=== PATIENT | male | born 1970 | race Hispanic/Latino ===

== ENCOUNTER 2021-02-06 16:45 | Outpatient (CLI) | payer SELFPAY ==
[2021-02-06 17:54] LABS: #Basophils 0.1 10x3/uL (0.0-0.2); #Eosinphils 0.7 10x3/uL (0.0-0.5); #Monocytes 0.8 10x3/uL (0.0-1.1); #Neutrophils 3.4 10x3/uL (1.5-8.4); %Basophils 1.1 % (0.0-2.0); %Eosinophils 7.7 % (0.0-6.0); %Lymphocytes 41.2 % (18.0-47.0); %Monocytes 9.5 % (0.0-10.0); %Neutrophils 40.3 % (40.0-75.0); Hemoglobin 16.4 g/dL (13.5-17.5); Mean Corpuscular HGB CONC 33.3 g/dL (32.0-36.0); Mean Corpuscular Hemoglobin 28.9 pg (27.0-33.0); Mean Corpuscular Volume 86.8 fl (81.2-95.1); Mean Platelet Volume 9.9 fl (7.4-10.4); Platelet Count 246 10x3/uL (150-450); RBC Distribution Width 12.2 % (11.5-14.5); Red Blood Cell (RBC) Count 5.68 10x6/uL (4.32-5.72); White Blood Cell (WBC) Count 8.4 10x3/uL (3.5-10.5)
[2021-02-06 18:14] LABS: Anion Gap 13 mmol/L (10-20); BUN (Urea Nitrogen) 11 mg/dL (8.9-20.6); Calc. Creatinine Clearance 0 mL/min (70-130); Calcium 9.5 mg/dL (7.8-10.44); Carbon Dioxide 28 mmol/L (22-29); Chloride 103 mmol/L (98-107); Glucose 110 mg/dL (70-105); Potassium 4.3 mmol/L (3.5-5.1); Sodium 140 mmol/L (136-145)
[2021-02-07 19:37] LABS: SARS-CoV-2 PCR by NAA Not Detected (NotDetected)
== END 2021-02-06 16:46 | disposition home or self-care (01) ==
LOC: LABBT 16:45
PROVIDERS: ATTEND Orthopaedic Surgery
DX: Z01.812 Encounter for preprocedural laboratory examination (principal); Z20.822 Contact with and (suspected) exposure to COVID-19
CPT/HCPCS: 80048; 85025; U0003; U0005

== ENCOUNTER 2021-02-11 07:57 | Day surgery (SDC) | payer OTHER ==
[2021-02-09 13:38] VITALS: BMI 34.4
[2021-02-11] MEDS ORDERED: Clindamycin/D5W 600 mg/50 ml Premix Bag ONE (08:25)
[2021-02-11] MEDS ORDERED: Fentanyl 100 MCG/2 ML VIAL ONE ×2 (09:28→11:13)
[2021-02-11] MEDS ORDERED: PROPOFOL 200 MG/20 ML VIAL ONE (09:30)
[2021-02-11] MEDS ORDERED: Ondansetron PF 4 MG/2 ML Vial ONE (09:30)
[2021-02-11] MEDS ORDERED: Ketorolac Tromethamine 30 MG/ML VIAL ONE (09:30)
[2021-02-11] MEDS ORDERED: Dexamethasone 20 MG/5 ML VIAL ONE (09:30)
[2021-02-11] MEDS ORDERED: Vancomycin 1 GM/200 ML BAG ONE (09:36)
[2021-02-11] MEDS ORDERED: Bupivacaine PF 0.75% SDV 10 ML ONE (10:55)
[2021-02-11] MEDS ORDERED: HYDROcodone/Acetaminophen 5/325 mg Tablet ONE (12:35)
== END 2021-02-11 14:10 | disposition home or self-care (01) ==
LOC: SDC 07:57
PROVIDERS: ATTEND Orthopaedic Surgery
PROC: 0SCD0ZZ Extirpation of Matter from Left Knee Joint, Open Approach (ICD-10-PCS; principal; 2021-02-11)
PROC: 0SBD4ZZ Excision of Left Knee Joint, Percutaneous Endoscopic Approach (ICD-10-PCS; principal; 2021-02-11)
DX: M93.28 Osteochondritis dissecans other site (principal); M25.462 Effusion, left knee; M25.862 Other specified joint disorders, left knee; Z88.0 Allergy status to penicillin; Z88.1 Allergy status to other antibiotic agents
CPT/HCPCS: C1713; J1100; J1885; J2405; J2704; J3010; J3370; J3490

== ENCOUNTER 2021-06-15 17:58 | Emergency (ER) | payer SELFPAY ==
[2021-06-15] MEDS ORDERED: Diazepam 10 MG/2 ML SYRINGE ONE (18:43)
== END 2021-06-15 19:07 | disposition home or self-care (01) ==
LOC: ERS 17:58
DX: M54.50 Low back pain, unspecified (principal)
CPT/HCPCS: 96372; 99283; J3360

== ENCOUNTER 2023-12-09 15:09 | Outpatient (CLI) | payer SELFPAY | END 2023-12-09 15:10 | disposition home or self-care (01) | LOC: SCSRAD 15:09 | DX: R06.02 Shortness of breath (principal) | CPT/HCPCS: 71046 ==